=== PATIENT | female | born 1945 | race Caucasian/White ===

== ENCOUNTER → 2020-08-17 | Day surgery (SDC) | payer MEDICARE, OTHER ==
[~2020-08-17] MED LIST: ASPIRIN81 MG PO; CRESTOR10 MG PO; FENTANYL CITRATE/PF 100MCG/2 ML INJ ONE; LOSARTAN POTASS25 MG PO; MIDAZOLAM HCL 2 MG/2 ML VIAL ONE; OR PHACO EYE KIT ONE; PREMPRO 0.625-1 EAC1 PO; PREOP PHACO EYE KIT ONE
[2020-08-17 11:54] VITALS: BP 105/73
== END | disposition home or self-care (01) ==
LOC: OR 08:28
PROVIDERS: ATTEND Ophthalmology
DX: H25.12 Age-related nuclear cataract, left eye (principal); H91.93 Unspecified hearing loss, bilateral; I10 Essential (primary) hypertension; E78.5 Hyperlipidemia, unspecified; K21.9 Gastro-esophageal reflux disease without esophagitis; Z88.2 Allergy status to sulfonamides; Z01.812 Encounter for preprocedural laboratory examination; Z20.822 Contact with and (suspected) exposure to COVID-19; Z79.82 Long term (current) use of aspirin
CPT/HCPCS: 66984; J2250; J3010; U0002 ×2; V2632